=== PATIENT | female | born 1955 | race Caucasian/White ===

== ENCOUNTER → 2023-08-10 10:51 | Outpatient (REF) | payer MEDICARE, BC, SELFPAY ==
[2023-08-10 11:50] LABS: Blood Urea Nitrogen 22 mg/dl (7-17); Calcium 10.1 mg/dl (8.4-10.2); Carbon Dioxide 24 mmol/L (22-30); Chloride 102 mmol/L (98-107); Glucose 97 mg/dl (70-99); Potassium 4.3 mmol/L (3.5-5.1); Sodium 139 mmol/L (135-145); eGFR > 60.00
== END ==
LOC: RCS 10:51
PROVIDERS: ATTENDING PHYSICIAN Specialist
DX: Z01.818 Encounter for other preprocedural examination (principal)
CPT/HCPCS: 36415; 80048; 93005

== ENCOUNTER 2023-08-29 06:28 | Day surgery (SDC) | payer MEDICARE, BC, SELFPAY ==
[2023-08-29] VITALS (10 sets, daily range): BP systolic 133–162; BP diastolic 60–114; BMI 28.0
[2023-08-29] MEDS: NORMOSOL-R 1000 IV (11:23)
[2023-08-29] MEDS: TYLENOL 1000 MG PO (11:23)
[2023-08-29] MEDS: CELEBREX 200 MG PO (11:23)
== END 2023-08-29 17:24 | disposition home or self-care (01) ==
LOC: SDS 06:28
PROVIDERS: ATTENDING PHYSICIAN Specialist
DX: S83.231A Complex tear of medial meniscus, current injury, right knee, initial encounter (principal); X58.XXXA Exposure to other specified factors, initial encounter; M22.41 Chondromalacia patellae, right knee
CPT/HCPCS: 29881

== ENCOUNTER 2024-05-02 14:11 | Emergency (ER) | payer MEDICARE, BC, SELFPAY ==
[2024-05-02 14:13] VITALS: BP 150/84
--- NOTE | 2024-05-02 14:59 | ED.GENMED ---
History of Present Illness
General
Chief Complaint: Head Injury
Source: patient
Time Seen by Provider: 05/02/24 14:39
History of Present Illness
History of Present Illness:
68yoF with a history of hypertension and hyperlipidemia presenting for evaluation after a fall about 1 hour ago. Patient was walking on the sidewalk when she tripped and fell forward. She landed on her bilateral hands and knees and struck her head
against the sidewalk. No LOC. Patient was able to get up after the fall. She currently complains of a headache and sustained multiple abrasions during the fall. She takes a baby aspirin daily. Last Tdap was 5 years ago per patient.
Past History
Past History
ED Past Medical History: HTN and Hypercholesterolemia
ED Past Surgical History: Tonsilectomy
Social History
Tobacco: Non-smoker
Alcohol: None
Drug: None
Personal:
Living: with family
Phy Exam
General Physical Exam
General Presentation: well appearing and no apparent distress
General age: appears stated age
General Skin: warm and dry
General Habitus: normal
General Mental: alert
ENT Exam
Additional ENT: Abrasions noted to forehead and nose. No facial tenderness or crepitus.
Eye Exam
Eye Exam: PERRL
Pulmonary Exam
Pulmonary Exam: lungs clear and no respiratory distress
[place] Coma Scale
Eye Opening: Spontaneous
Verbal Response: Oriented
Motor Response: Obeys Commands
GCS Total Score: 15
Skin Exam
Skin Exam: normal color, warm/dry and other (Multiple abrasions noted to bilateral knees, hands, and face. ROM of extremities are normal.)
Psychiatric Exam
Psychiatric Exam: normal mood/affect
Course
Orders/Labs/Results
Orders:
Orders
05/02/24 14:14
CT Cervical Spine W/o Iv Contr Urgent
Comment:
Reason For Exam: fall
CT Head W/o Iv Contrast Urgent
Comment:
Reason For Exam: fall
05/02/24 14:59
Ice Pack-Treatment DIRECTED
Location: R knee
Acetaminophen [Tylenol] 1,000 mg PO NOW STA
Vital Signs
Initial and Last Documented VS:
Initial Vital Signs
Temp Pulse Resp BP Pulse Ox
98.2 F 79 18 150/84 97
05/02/24 14:13 05/02/24 14:13 05/02/24 14:13 05/02/24 14:13 05/02/24 14:13
Last Documented Vital Signs
Temp Pulse Resp BP Pulse Ox
98.2 F 85 18 148/70 99
05/02/24 14:13 05/02/24 16:32 05/02/24 16:32 05/02/24 16:32 05/02/24 16:32
MDM/Problems Addressed
Differential Diagnosis Includes:
68yoF here after a mechanical fall 1 hour ago. Tripped on a sidewalk and fell forward. +Head strike, no LOC. On a baby aspirin daily. C/o headache. She arrives with multiple abrasions including her forehead and nose. She is awake, alert, with a GCS
of 15. VSS. Differential diagnosis includes but is not limited to: abrasions, closed head injury, concussion, intracranial hemorrhage, fracture
Wound irrigated with saline. CT head and cervical spine ordered in triage which are negative for acute traumatic injuries. Patient is stable for discharge. Supportive care discussed. Advised f/u with PCP and ED return precautions discussed. She
expressed understanding and is agreeable to plan. Patient discharged in stable condition.
*Critical Care Note
Total Time (30-74mins, 75-104mins- exclusive of procedures): Not Applicable
ED Attending Note
-
Portions of this chart may have been created with voice recognition software.� Occasional wrong word or��sound alike� substitutions may have occurred due to the inherent limitations of voice recognition software.
Discharge Plan
Departure
Patient Disposition: Home (Routine Discharge)
Date of Disposition: 05/02/24
Time of Disposition: 15:52
Patient with high blood pressure during this ER visit?: Yes
Discharge Problem:
Closed head injury, Abrasions of multiple sites
Instructions: Head Injury in Adults (DC)
Prescriptions:
No Action
Flarex 0.1 % Drops,Suspension
1 drp BOTH EYES BID
aspirin 81 mg Tablet
81 mg PO DAILY
coenzyme Q10 [CoQ-10] 100 mg Capsule
100 mg PO DAILY
rosuvastatin [Crestor] 5 mg Tablet
5 mg PO DAILY
vitamin D3-vitamin K2
1 cap PO DAILY
Prevagen
1 tab PO DAILY
acetaminophen [Tylenol Ex Str Arthritis Pain] 500 mg Tablet
1,000 mg PO Q6H PRN (Reason: pain)
Centrum Women 18-400 mg-mcg Tablet
1 tab PO DAILY
Referrals:
Reji Welsh MD [Family Provider] -
Activity Restrictions/Additional Instructions:
Apply ice to affected area. Take Tylenol as needed for headaches/pain.
Please follow-up with your family doctor. Return to the ER with any worsening symptoms, excessive vomiting, confusion, seizures.
Interventions
Interventions:
*Risk Screen - Suicide Last Done: 05/02/24 14:13
*Neglect/Abuse Screening Last Done: 05/02/24 14:13
*Nursing Disposition Last Done: 05/02/24 16:34
ED- Neurological Assessment Last Done: 05/02/24 16:32
ED-Skin Assessment Last Done: 05/02/24 16:32
Discharge Date and Time
Discharge Date/Time: 05/02/24 16:35
Print Language: MALAGASY
[2024-05-02] MEDS: TYLENOL 1000 MG PO (15:12)
[2024-05-02 16:32] VITALS: BP 148/70
== END 2024-05-02 16:35 | disposition home or self-care (01) ==
LOC: EMR 14:11
PROVIDERS: EMERGENCY PHYSICIAN Emergency Medicine; FAMILY PHYSICIAN Internal Medicine
DX: S09.90XA Unspecified injury of head, initial encounter (principal); S00.81XA Abrasion of other part of head, initial encounter; W01.0XXA Fall on same level from slipping, tripping and stumbling without subsequent striking against object, initial encounter; Y92.480 Sidewalk as the place of occurrence of the external cause; Y93.01 Activity, walking, marching and hiking; I10 Essential (primary) hypertension; E78.00 Pure hypercholesterolemia, unspecified; Z79.82 Long term (current) use of aspirin
CPT/HCPCS: 99284; 70450; 72125